=== PATIENT | female | born 1960 | race Caucasian/White ===

== ENCOUNTER 2017-11-13 14:33 | Emergency (ER) | payer OTHER ==
[~2017-11-13] VITALS: Ht 144.8 cm; Wt 74.8 kg
[2017-11-13] MEDS ORDERED: ASPI81CH PO (14:40)
[2017-11-13] MEDS ORDERED: Prilosec Otc20 MG (14:40)
[2017-11-13] MEDS ORDERED: ATEN50 PO (14:40)
[2017-11-13] MEDS ORDERED: AMLO5 PO (14:40)
== END 2017-11-13 16:40 | disposition home or self-care (01) ==
LOC: ER 14:33
DX: S00.83XA Contusion of other part of head, initial encounter (principal); S09.90XA Unspecified injury of head, initial encounter; Z79.899 Other long term (current) drug therapy; Z79.82 Long term (current) use of aspirin; W22.8XXA Striking against or struck by other objects, initial encounter; Y93.01 Activity, walking, marching and hiking
CPT/HCPCS: 70486; 99284

== ENCOUNTER 2020-06-07 07:30 | Day surgery (SDC) | payer OTHER ==
[~2020-06-07] VITALS: Ht 147.3 cm; Wt 67.6 kg
[~2020-06-07 07:30] MED LIST: AMLO5 PO; ASPI81CH PO; ATEN50 PO; CYCLOBENZAPRINE5 MG PO; Celexa40 MG PO; MELO7.5 PO; OMEP20ER PO; OXYB5 PO; Prilosec Otc20 MG
--- NOTE | 2020-06-07 09:05 | NUR ---
06/07/20 0905 Tyler Smith BLOCK DONE BY DR. COTTO PRIOR TO SURGERY START.
--- NOTE | 2020-06-07 10:19 | NUR ---
06/07/20 1019 Umm Carbajal PT VERY DROWSY; REMINDED TO TAKE DEEP BREATHES. PT DENIES PAIN OR NAUSEA, TOLERATING PO INTAKE.
== END 2020-06-07 10:27 | disposition home or self-care (01) ==
LOC: ORSCSDS 07:30
PROVIDERS: Orthopaedic Surgery
PROC: 01N50ZZ Release Median Nerve, Open Approach (ICD-10-PCS; principal; 2020-06-07 09:00)
DX: G56.01 Carpal tunnel syndrome, right upper limb (principal); I10 Essential (primary) hypertension; K21.9 Gastro-esophageal reflux disease without esophagitis; F41.9 Anxiety disorder, unspecified; E66.9 Obesity, unspecified; Z68.31 Body mass index [BMI] 31.0-31.9, adult; Z79.82 Long term (current) use of aspirin; Z79.899 Other long term (current) drug therapy
CPT/HCPCS: J0690; J1100; J1885; J2250; J2405; J2704; J7120

== ENCOUNTER 2021-12-09 11:52 | Day surgery (SDC) | payer OTHER ==
[~2021-12-09] VITALS: Ht 124.5 cm; Wt 68.1 kg
[~2021-12-09 11:52] MED LIST changes: +DULO30 PO; +TRAZ50 PO
== END 2021-12-09 13:58 | disposition home or self-care (01) ==
LOC: ORSCSDS 11:52
PROVIDERS: Surgery
PROC: 0DJD8ZZ Inspection of Lower Intestinal Tract, Via Natural or Artificial Opening Endoscopic (ICD-10-PCS; principal; 2021-12-09 13:00)
DX: R19.4 Change in bowel habit (principal); K21.9 Gastro-esophageal reflux disease without esophagitis; I10 Essential (primary) hypertension; F41.8 Other specified anxiety disorders; F41.0 Panic disorder [episodic paroxysmal anxiety]; Z87.891 Personal history of nicotine dependence; Z79.899 Other long term (current) drug therapy
CPT/HCPCS: J2405; J2704; J7120

== ENCOUNTER 2022-01-26 12:38 | Observation (INO) | payer OTHER ==
[~2022-01-26] VITALS: Ht 144.8 cm; Wt 68.5 kg
[2022-01-26 16:02] LABS: International Normalized Ratio 0.96; Prothrombin Time Results 10.1 Sec (9.7-11.5)
[2022-01-26 16:08] LABS: BASOPHILS PERCENT AUTO 1 % (0-2); EOSINOPHILS PERCENT AUTO 1 % (0-6); Hematocrit 42.7 % (33.0-51.0); Hemoglobin 14.6 g/dL (11.5-16.0); MONOCYTES PERCENT AUTO 7 % (4-13); Mean Corpuscular HGB Conc 34.2 g/dL (31.5-36.5); Mean Corpuscular Volume 88 fL (80-100); RDW Coefficient Variation 13.4 % (11.7-14.2); RDW Standard Deviation 43.3 fL (35.1-46.3); Red Blood Cell Count 4.87 M/mm3 (3.80-5.20); White Blood Cell Count 11.48 K/mm3 (4.00-11.30)
[2022-01-26 16:09] LABS: Bun/Creatinine Ratio 32.6 (12.0-20.0); Calcium, Blood 10.4 mg/dL (8.5-10.1); Creatinine, Blood 0.86 mg/dL (0.40-1.00); Potassium, Blood 4.4 mmol/L (3.5-5.5)
[2022-01-26 16:40] LABS: BASOPHILS ABSOLUTE AUTO 0.06 K/mm3 (0.00-0.23); EOSINOPHILS ABSOLUTE AUTO 0.07 K/mm3 (0.00-0.68); IMMATURE GRAN ABSOLUTE AUTO 0.03 K/mm3 (0.00-0.10); IMMATURE GRAN PERCENT AUTO 0 % (0-1); LYMPHOCYTES ABSOLUTE AUTO 1.53 K/mm3 (0.84-5.20); LYMPHOCYTES PERCENT AUTO 17 % (21-46); MONOCYTES ABSOLUTE AUTO 0.66 K/mm3 (0.16-1.47); NEUTROPHILS ABSOLUTE AUTO 6.65 K/mm3 (1.96-9.15); NEUTROPHILS PERCENT AUTO 74 % (41-73)
[2022-01-26 16:46] LABS: Platelet Count 199 K/mm3 (150-400)
[2022-01-26 16:48] LABS: Mean Platelet Volume 10.9 fL (9.1-12.4)
[2022-01-26 17:54] LABS: Influenza A, PCR NEGATIVE (NEGATIVE); Influenza B, PCR NEGATIVE (NEGATIVE); Resp Syncytial Virus, PCR NEGATIVE (NEGATIVE); SARS-Cov-2 (COVID-19) PCR, MMC NEGATIVE (NEGATIVE)
[2022-01-26] MEDS ORDERED: CELEXA40 M1 PO (19:06)
--- NOTE | 2022-01-27 04:11 | NUR ---
SUMMARY: PT A/OX3 BUT MILDLY FORGETFUL TO TOWN AND YEAR W/REMINDERS PROVIDED PRN. SHE WAS VERY DROWSY THIS SHIFT BUT WAKEFUL AND ABLE TO SPECIFY NEEDS. TYLENOL RECIEVED FOR PAIN R/T BILAT RADIAL FRACTURES. SPLINTS REMAIN INTACT TO BUE'S AND FREQ ROUNDING ATTENDED TO FOR LIMITED ROM AND ASSIST W/ADL'S. SHE REMAINS NPO W/NS INFUSING TO L.ANKLE IV. R.ANKLE IV IS SL'D. PT IS NSR AT 6O'S BPM ON TELEMETRY. NO ACUTE CHANGES OR S/S SEIZURE ACTIVITY THIS SHIFT. VSS AND AFEBRILE. WCTM AND REPORT TO DAY RN.
--- NOTE | 2022-01-27 04:56 | NUR ---
ALERTED TO POSSIBLE NEED FOR AM LABS TO BE DRAWN FROM FEET D/T SPLINTS TO BUE'S AND BILAT ANKLE IV'S NOT DRAWING. HE CANCELED LABS AT THIS TIME D/T "NO URGENT NEED FOR ROUTINE LABS" AND INSTRUCTED TO HAVE PRIMARY MD F/U RE: HOW LABS SHOULD BE DRAWN IF NEEDED.
--- NOTE | 2022-01-27 20:04 | NUR ---
SHIFT SUMMARY- PT WAS SEEN TODAY BY [facility]THO. PLAN IS FOR PT TO HAVE SURGERY WEDNESDAY OR WEDNESDAY. UNCERTAIN IF THE PT WILL REMAIN IN THE HOSPITAL OR DO THE SURGERY AN OUTPT. BEDSIDE REPORT COMPLETED WITH NIGHT RN ELISA, PT IN BED SOFT TOUCH CALL LIGHT IN REACH NO S&S OF DISTRESS NOTED AT THIS TIME.
--- NOTE | 2022-01-28 05:00 | NUR ---
PARENT AIDE SUMMARY NO ACUTE CHANGES THIS SHIFT. PT AAOX4 AND PLEASANT. 1 ASSIST WHEN OUT OF BED. BUE STILL IN SPLINTS, PT HAS MOVEMENT OF FINGERS AND DENIES N/T. PAIN HAS BEEN WELL MANAGED WITH TYLENOL. SB IN THE 50'S ON TELEMETRY. WILL CONTINUE TO MONITOR.
[2022-01-28] MEDS ORDERED: Acetaminophen325 M1 PO (12:22)
[2022-01-28 12:29] LABS: Influenza A, PCR NEGATIVE (NEGATIVE); Influenza B, PCR NEGATIVE (NEGATIVE); Resp Syncytial Virus, PCR NEGATIVE (NEGATIVE); SARS-Cov-2 (COVID-19) PCR, MMC NEGATIVE (NEGATIVE)
--- NOTE | 2022-01-28 12:57 | NUR ---
TRANSPORTATION HERE 1300 TO TRANSPORT PT TO [facility]. IV'S DC'D. SENT WITH BELONGINGS.
== END 2022-01-28 13:04 | disposition home or self-care (01) ==
LOC: ER 12:38 → MEDS 12:39
PROVIDERS: Family Medicine; Student in an Organized Health Care Education/Training Program; ADMIT Internal Medicine
DX: S52.501A Unspecified fracture of the lower end of right radius, initial encounter for closed fracture (principal); S52.502A Unspecified fracture of the lower end of left radius, initial encounter for closed fracture; W17.89XA Other fall from one level to another, initial encounter; R56.9 Unspecified convulsions; I10 Essential (primary) hypertension; K21.9 Gastro-esophageal reflux disease without esophagitis; Z79.899 Other long term (current) drug therapy; Z20.822 Contact with and (suspected) exposure to COVID-19
CPT/HCPCS: 0241U; 25605; 70450; 70551; 73080; 73100; 73110; 80048; 85025; 85610; 85730; 86850; 86900; 86901; 95819; 96372; 96374-59; 96375-59; 97110; 97112; 97162; 97165; 99152; 99285-25; A9270; G0378; J1170; J1650; J1885; J2060; J2704; J3010; J7030

== ENCOUNTER 2022-02-09 12:16 | Day surgery (SDC) | payer OTHER ==
[~2022-02-09] VITALS: Ht 144.8 cm; Wt 66.7 kg
[~2022-02-09 12:16] MED LIST changes: +Acetaminophen325 M1 PO; +CELEXA40 M1 PO
[2022-02-09] MEDS ORDERED: TRAM50 PO (13:25)
--- NOTE | 2022-02-09 13:34 | NUR ---
History, Chart, Medications and Allergies reviewed before start of procedure. Lungs clear T/O to Auscultation. Pre-Op teaching done. Pt verbalizes understanding.
--- NOTE | 2022-02-09 14:30 | NUR ---
02/09/22 1430 Pearl Dsouza NOT PLACED ON PATIENTS LEGS DUE TO IV IN RIGHT LEG AND BLOOD PRESSURE CUFF PLACED ON LEFT LEG DUE TO PROCEDURE FOR BILATERAL WRIST FRACTURES. DR. ROSENBERG AND NOTIFIED.
--- NOTE | 2022-02-09 18:00 | NUR ---
REPORT CALLED TO JOSELUIS AT [facility]. PT RIDE ARRANGED WITH MEDICAL TRANSPORTATION BACK TO FACILITY. REVIEWED DISCHARGE INSTRUCTIONS. PT PAIN DOWN TO ABOUT 6/10 AT THIS TIME. PT IS ABLE TO GO TO THE BATHROOM WITH ASSISTANCE. SHE HAS TAKEN PUDDING AND FLUIDS WITHOUT DIFFICULTY AND A TOTAL TWO PO PERCOCETS. PT VERBALIZED UNDERSTANDING OF DISCHARGE INSTRUCTIONS. OUT OF DEPARTMENT VIA WHEELCHAIR.
== END 2022-02-09 17:55 | disposition home or self-care (01) ==
LOC: ORSCMMR 12:16 → ORD 13:30 → ORSCMMR 17:55
PROVIDERS: Orthopaedic Surgery
PROC: 0PSH04Z Reposition Right Radius with Internal Fixation Device, Open Approach (ICD-10-PCS; principal; 2022-02-09 13:30)
PROC: 0PSJ04Z Reposition Left Radius with Internal Fixation Device, Open Approach (ICD-10-PCS; principal; 2022-02-09 13:30)
DX: S52.572A Other intraarticular fracture of lower end of left radius, initial encounter for closed fracture (principal); S52.571A Other intraarticular fracture of lower end of right radius, initial encounter for closed fracture; W17.89XA Other fall from one level to another, initial encounter; I10 Essential (primary) hypertension; Z87.891 Personal history of nicotine dependence; F41.0 Panic disorder [episodic paroxysmal anxiety]; K21.9 Gastro-esophageal reflux disease without esophagitis; Z79.899 Other long term (current) drug therapy
CPT/HCPCS: A9270; C1713; J0171; J0690; J1170; J2250; J2270; J7120

== ENCOUNTER 2022-03-02 08:53 | Day surgery (SDC) | payer OTHER ==
[~2022-03-02] VITALS: Ht 144.8 cm; Wt 68.8 kg
[~2022-03-02 08:53] MED LIST changes: +TRAM50 PO
--- NOTE | 2022-03-02 10:37 | NUR ---
ASSUMMED CARE OF PT. EKG DONE PER DR. RUTHERFORD'S ORDER
--- NOTE | 2022-03-02 12:43 | NUR ---
PT TOLERATING PO FLUIDS AND FOOD. PROVIDED ICE THERAPY TO PROCEDURE ARM FOR COMFORT.
--- NOTE | 2022-03-02 13:12 | NUR ---
PT HAS DIEGO BANDAGE WRAP ON RIGHT WRIST AND FOREARM THAT IS CLEAN, DRY AND INTACT. FINGERS ON OPERATIVE SIDE HAVE CAPILLARY REFILL OF <2 SECONDS. NO DRAINAGE, SWELLING, REDNESS NOTED. PT CAN REPOSITION SELF IN BED AND TOLERATES PO FLUIDS AND FOOD. REQUESTING TO GO HOME.
--- NOTE | 2022-03-02 13:26 | NUR ---
Patient up to Ambulate independently. Gait steady. Discharge instructions reviewed with patient. Patient verbalizes understanding. Copy given to patient to take home. Dressing to procedure site clean, dry, intact with no visible drainage, swelling, erythema or bruising noted. Patient States Post-Procedure ride home has been arranged. Discharged via wheelchair to private car for ride home. ALL BELONGINGS RETURNED TO PATIENT, TO INCLUDE HARDWARE REMOVED FROM PROCEDURE SITE.
--- NOTE | 2022-03-03 09:16 | NUR ---
03/03/22 0916 Trina Gomez VERIFICATIONS: EDIT CHART.
== END 2022-03-02 23:31 | disposition home or self-care (01) ==
LOC: ORSCMMR 08:53 → ORD 10:15 → ORSCMMR 10:15
PROVIDERS: Orthopaedic Surgery
PROC: 0PPH04Z Removal of Internal Fixation Device from Right Radius, Open Approach (ICD-10-PCS; principal; 2022-03-02 10:15)
DX: T84.9XXA Unspecified complication of internal orthopedic prosthetic device, implant and graft, initial encounter (principal); I10 Essential (primary) hypertension; Z87.891 Personal history of nicotine dependence; K21.9 Gastro-esophageal reflux disease without esophagitis; G40.909 Epilepsy, unspecified, not intractable, without status epilepticus; Z79.899 Other long term (current) drug therapy
CPT/HCPCS: A9270; J0690; J2250; J3010; J7120

== ENCOUNTER 2023-02-11 21:11 | Emergency (ER) | payer OTHER ==
[~2023-02-11] VITALS: Ht 152.4 cm; Wt 59.0 kg
[2023-02-11 21:21] VITALS: BP 131/100
[2023-02-11] MEDS ORDERED: Norco 5-325 Ta1 EACH PO (21:33)
[2023-02-11] MEDS ORDERED: BACITRACIN ZIN1 EAC1 TOP (21:33)
== END 2023-02-11 21:44 | disposition home or self-care (01) ==
LOC: ER 21:11
DX: L55.1 Sunburn of second degree (principal); Z91.030 Bee allergy status
CPT/HCPCS: 99282; A9270

== ENCOUNTER → 2025-07-05 | Outpatient (CLI) | payer OTHER ==
[~2025-07-05] MED LIST changes: +BACITRACIN ZIN1 EAC1 TOP; +Norco 5-325 Ta1 EACH PO
[2025-07-05 19:15] LABS: BASOPHILS ABSOLUTE AUTO 0.07 K/mm3 (0.00-0.23); BASOPHILS PERCENT AUTO 1 % (0-2); EOSINOPHILS ABSOLUTE AUTO 0.33 K/mm3 (0.00-0.68); EOSINOPHILS PERCENT AUTO 5 % (0-6); Hematocrit 38.0 % (33.0-51.0); Hemoglobin 11.9 g/dL (11.5-16.0); IMMATURE GRAN ABSOLUTE AUTO 0.03 K/mm3 (0.00-0.10); IMMATURE GRAN PERCENT AUTO 0 % (0-1); LYMPHOCYTES ABSOLUTE AUTO 1.79 K/mm3 (0.84-5.20); LYMPHOCYTES PERCENT AUTO 27 % (21-46); MONOCYTES ABSOLUTE AUTO 0.60 K/mm3 (0.16-1.47); MONOCYTES PERCENT AUTO 9 % (4-13); Mean Corpuscular HGB Conc 31.3 g/dL (31.5-36.5); Mean Corpuscular Volume 81 fL (80-100); NEUTROPHILS ABSOLUTE AUTO 3.93 K/mm3 (1.96-9.15); NEUTROPHILS PERCENT AUTO 58 % (41-73); NRBC ABSOLUTE 0.00 K/mm3 (0.00-0.02); NRBC Auto 0.0 /100 WBC (0.0-0.2); RDW Coefficient Variation 15.6 % (11.7-14.2); RDW Standard Deviation 46.0 fL (35.1-46.3)
== END | disposition home or self-care (01) ==
LOC: LAB 17:41 → LAB SHORT 17:41
PROVIDERS: Student in an Organized Health Care Education/Training Program
DX: Z00.00 Encounter for general adult medical examination without abnormal findings (principal); Z13.6 Encounter for screening for cardiovascular disorders; F17.211 Nicotine dependence, cigarettes, in remission; F41.8 Other specified anxiety disorders; F51.01 Primary insomnia; I10 Essential (primary) hypertension; R53.83 Other fatigue
CPT/HCPCS: 83036; 85025

== ENCOUNTER 2025-07-28 12:58 | Emergency (ER) | payer OTHER ==
[~2025-07-28] VITALS: Ht 144.8 cm; Wt 72.6 kg
[2025-07-28] MEDS ORDERED: HYDROmorphone HCl/Pf 1MG SYR IM ONE (13:15)
[2025-07-28 13:56] VITALS: BP 159/92
[2025-07-28] MEDS ORDERED: Roxicodone5 MG PO (17:34)
== END 2025-07-28 17:37 | disposition home or self-care (01) ==
LOC: ER 12:58
DX: S39.012A Strain of muscle, fascia and tendon of lower back, initial encounter (principal); S20.212A Contusion of left front wall of thorax, initial encounter; Z91.030 Bee allergy status; Z79.1 Long term (current) use of non-steroidal anti-inflammatories (NSAID); Z79.899 Other long term (current) drug therapy; W17.89XA Other fall from one level to another, initial encounter
CPT/HCPCS: 71046; 72100; 96372; 99283-25; A9270; J1171